=== PATIENT | female | born 1975 | race Two or more races ===

== ENCOUNTER 2022-09-11 17:39 | Emergency (ER) | payer SELFPAY ==
[~2022-09-11] VITALS: Ht 157.5 cm; Wt 72.7 kg
[~2022-09-11 17:39] MED LIST: ASCO125T PO; IBUP-1985 PO; LOVA20TA2 PO; METF500T PO; MULT-1085 PO
[2022-09-11 19:11] VITALS: BP 153/91
[2022-09-11] MEDS ORDERED: ketorolac trometh. 30mg/ml inj. IM ONE (20:05)
== END 2022-09-11 20:38 | disposition home or self-care (01) ==
LOC: ER 17:39
DX: S16.1XXA Strain of muscle, fascia and tendon at neck level, initial encounter (principal); S39.012A Strain of muscle, fascia and tendon of lower back, initial encounter; E11.9 Type 2 diabetes mellitus without complications; F17.200 Nicotine dependence, unspecified, uncomplicated; Z88.5 Allergy status to narcotic agent; Z88.2 Allergy status to sulfonamides; V49.9XXA Car occupant (driver) (passenger) injured in unspecified traffic accident, initial encounter; Y93.89 Activity, other specified; Y92.89 Other specified places as the place of occurrence of the external cause; Y99.8 Other external cause status
CPT/HCPCS: 96372; 99283; J1885

== ENCOUNTER 2023-07-10 10:18 | Emergency (ER) | payer OTHER ==
[~2023-07-10] VITALS: Ht 157.5 cm; Wt 73.6 kg
[2023-07-10 10:22] VITALS: TEMP 99
[2023-07-10] MEDS ORDERED: LORazepam 2 mg/ml vial IM ONE (11:00)
[2023-07-10 11:34] VITALS: BP 147/77; PULSE 69; RESP 16; O2SAT 98
== END 2023-07-10 11:44 | disposition home or self-care (01) ==
LOC: ER 10:19
DX: F41.9 Anxiety disorder, unspecified (principal); R06.02 Shortness of breath; M79.10 Myalgia, unspecified site; F12.90 Cannabis use, unspecified, uncomplicated; E11.9 Type 2 diabetes mellitus without complications; G47.30 Sleep apnea, unspecified; Z88.8 Allergy status to other drugs, medicaments and biological substances; Z88.2 Allergy status to sulfonamides; Z79.899 Other long term (current) drug therapy
CPT/HCPCS: 96372; 99283; J2060

== ENCOUNTER 2023-07-12 09:18 | Emergency (ER) | payer SELFPAY ==
[~2023-07-12] VITALS: Ht 157.5 cm; Wt 67.4 kg
[2023-07-12 11:26] VITALS: PULSE 78; TEMP 97.5; O2SAT 98
[2023-07-12] MEDS ORDERED: LORazepam 1 MG tablet PO ONE (15:55)
[2023-07-12] MEDS ORDERED: ALPR-624 PO (17:30)
[2023-07-12 17:48] VITALS: BP 60/82; RESP 18
== END 2023-07-12 17:55 | disposition home or self-care (01) ==
LOC: ER 09:18
DX: F41.9 Anxiety disorder, unspecified (principal); E11.9 Type 2 diabetes mellitus without complications; F12.90 Cannabis use, unspecified, uncomplicated; Z88.5 Allergy status to narcotic agent; Z88.2 Allergy status to sulfonamides; Z88.8 Allergy status to other drugs, medicaments and biological substances
CPT/HCPCS: 93005; 99283

== ENCOUNTER 2025-09-27 10:42 | Emergency (ER) | payer MEDICAID ==
[~2025-09-27] VITALS: Ht 157.5 cm; Wt 80.1 kg
[~2025-09-27 10:42] MED LIST changes: +ALPR-624 PO; -IBUP-1985 PO; +IBUP600T52 PO
--- NOTE | 2025-09-27 11:04 | ELECTROCARDIOGRAPH REPORT ---
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 MICHAEL Ruiz Measurements Intervals [place] Rate: 80 P: 67 MS: 153 QRS: 68 QRSD: 90 T: 60 QT: 370 QTc: 427 Interpretive Statements Sinus rhythm Electronically Signed On 09-28-2025 19:21:[address] MICHAEL Ruiz Please click the below link to view image of tracing.
--- NOTE | 2025-09-27 11:21 | RADIOLOGY REPORT ---
EXAM: DI CHEST,SINGLE VIEW HISTORY: CP COMPARISON: None TECHNIQUE: Portable upright AP view of the chest was performed. FINDINGS: No pneumothorax, consolidative infiltrates, or pulmonary edema. There is mild central peribronchial thickening. The heart is not enlarged. The aortic arch is calcific. There is thoracic degenerative disc disease. IMPRESSION: Mild reactive airways disease. The lungs are otherwise clear.
[2025-09-27] MEDS ORDERED: METF-1203 PO (11:34)
[2025-09-27] MEDS ORDERED: METO-395 PO (11:34)
[2025-09-27] MEDS ORDERED: CITA10TA22 PO (11:34)
[2025-09-27 11:35] LABS: MEAN PLATELET VOLUME 9.2 FL (7.4-10.4); RED CELL DISTRIBUTION WIDTH 13.3 % (11.5-14.5)
[2025-09-27 12:10] LABS: CREATININE 0.78 MG/DL (0.40-0.90); PRO BRAIN NATRIURETIC PEPTIDE 46 PG/ML (0-125); TOTAL CARBON DIOXIDE 26.4 MMOL/L (24-32); eCRCL 69 ML/MIN; eGFR 78 ML/MIN
[2025-09-27] MEDS: LIDOcaine 1% W/epiNEPHrine 1:100,000 20ml vial IJ ONE (12:54)
[2025-09-27 13:00] LABS: URINE AMPHETAMINE SCREEN NEGATIVE (Neg); URINE BARBITUATE SCREEN NEGATIVE (Neg); URINE BENZODIAZEPINES SCREEN NEGATIVE (Neg); URINE CANNABINOID SCREEN POSITIVE (Neg); URINE COCAINE SCREEN NEGATIVE (Neg); URINE METHADONE SCREEN NEGATIVE (Neg); URINE OPIATE SCREEN NEGATIVE (Neg); URINE PHENCYCLIDINE SCREEN NEGATIVE (Neg)
--- NOTE | 2025-09-27 13:13 | Physician Documentation ---
History of Present Illness ~ Chief Complaint: Syncope Stated Complaint: SYNCOPE Time Seen by MD: 10:49 Primary Medical Doctor: Dr. Tavera at [facility] urgent care Source: patient Mode of Arrival: EMS Exam Limitations: no limitations HPI 50-year-old female who was brought in by EMS due to being found down at work. Patient states that she remembers walking into work at 8:00 a.m. and getting onto her computer but then the next thing she knew she was getting on a stretcher and looking at paramedics. Patient was found on the ground by another employee. Patient reports she bit her tongue and she has a laceration to her head. She does not know what she hit her head on. She is not on blood thin ners. She states she is not confused but she just has no recollection of anything after getting to work and sitting down and getting onto her computer. No prior history of seizures. No urinary incontinence or bowel incontinence. Denies headache, neck pain. Medication Reconciliation Allergies: Coded Allergies: hydrocodone bit (Verified Allergy, Unknown, 09/27/25) sulfamethoxazole (Verified Allergy, Unknown, ITCHING, SWELLING EXTREMITIES, DIARRHEA, & ABD. PAIN, 09/27/25) Scheduled Citalopram Hydrobromide (Citalopram Hbr), 1 TAB PO 1700, (Reported) Metformin HCl (Metformin HCl), 1 TAB PO BID, (Reported) Metoprolol Succinate (Metoprolol Succinate), 1 TAB PO DAILY, (Reported) Miscellaneous Medications Multivitamin (Multi Vitamin Daily), 1 EACH PO, (Reported) Discontinued Medications Alprazolam* (Xanax*), 1 TAB PO TID PRN PRN for for anxiety/agitation Discontinued Reason: patient no longer taking Ascorbic Acid (Vitamin C), 125 MG PO, (Reported) Discontinued Reason: patient no longer taking Ibuprofen (Ibuprofen), 600 MG PO PRN PRN for pain, (Reported) Discontinued Reason: patient no longer taking Lovastatin* (Mevacor*), 1 TABLET PO HS Discontinued Reason: patient no longer taking Metformin Hcl* (Glucophage*), 1 TABLET PO BID, (Reported) Discontinued Reason: patient no longer taking Past Medical History Past Medical History: Sleep Apnea, Diabetes Past Surgical History: other Last Menstrual Period: Sep 25, 2025 Alcohol Use: None Drug Use: marijuana Lives with: Spouse Lives In: Home Review of Systems All Other Systems at this time: Reviewed and Negative Physical Exam Vital Signs: Temperature: 98.2, Source: Oral, Heart Rate: 87, Respiratory Rate: 18, BP: 139/55, Pulse Oximetry: 98, Weight: 80.100 Oxygen Flow Rate: 0 Physical Exam GENERAL: Alert, patient appears tearful. HEENT: Hair is matted down from blood, laceration over the parietal scalp 3CM IN LENGTH. EOMI, PERRLA, LATERAL LEFT SIDE OF TONGUE AREA WHERE TWO PUNCTURE WOUNDS ARE PRESENT, PUNCTURE WOUNDS ARE ARE NOT THROUGH AND THROUGH, NO BLEEDING, Pharyngeal wall normal, moist oral mucosa. NECK: Supple, trachea midline. CARDIAC: Regular rate and rhythm, no murmurs, rubs, or gallops. PV: Equal distal pulses. No lower extremity edema, cap refill less than 2 seconds. RESPIRATORY: Equal breath sounds, clear to auscultation bilaterally, no respiratory distress. GASTROINTESTINAL: Non distended, soft, nontender, No guarding or rebound. MUSCULOSKELETAL: Normal range of motion OF CERVICAL SPINE AND EXTREMITIES, non tender, no swelling. Normal gait. NEUROLOGICAL: Awake, alert, and oriented x 3. CN 2-12 INTACT. SKIN: Warm/dry, no pallor, no rash. PSYCH: Alert and appropriate. Affect congruent with mood. Speech is clear. Good eye contact. Procedures Laceration/Wound Repair Laceration/Wound Repair : Location: SCALP Length (cm): 3 Anesthesia: Lidocaine w/ Epi Volume Anesthetic (mls): 10 Irrigated w/ Saline (mls): 500 Debrided: minimal Undermining: none Margins: revised Foreign Body: not identified Repaired: skin Wound Repaired With: samia Number of Superficial Sutures: 3 Layer Closure?: No Dressing Applied: simple Splint Applied?: No Progress Progress Note EXAM: CT CT HEAD HISTORY: new onset seizure COMPARISON: None TECHNIQUE: Noncontrast axial CT images of the head were performed. Sagittal and coronal reformatted images were obtained. This CT exam was performed using 1 or more of the following dose reduction techniques: Automated exposure control, adjustment of the mA and/or kv according to patient size, or the use of iterative reconstruction techniques. Radiation Dose: CTDI volume is 51.24 mGy. Dose-length product is 889.37 mGy*cm FINDINGS: No intracranial hemorrhage, mass, midline shift, hydrocephalus, or evidence of acute large vessel infarct. The partially-visualized paranasal sinuses are clear. The bilateral mastoid air cells and middle ear spaces are clear. There is right parietal scalp edema and possible laceration, without underlying cranial fracture. IMPRESSION: 1. No acute intracranial process. 2. Right parietal scalp edema and possible laceration, without underlying crania l fracture. Results/Orders Results/Orders Vital Signs 09/27/25 09/27/25 09/27/25 09/27/25 10:46 11:14 11:16 12:54 Temp 98.2 Pulse 84 87 Resp 18 14 14 18 B/P (MAP) 117/68 139/55 (83) Pulse Ox 97 98 O2 Flow Rate 0 0 09/27/25 14:55 Temp 98.2 Pulse 78 Resp 18 B/P (MAP) 132/68 Pulse Ox 99 Laboratory Tests Test 09/27/25 11:22 09/27/25 12:05 09/27/25 13:44 White Blood Count 11.1 H Red Blood Count 4.31 Hemoglobin 14.7 Hematocrit 42.9 Mean Corpuscular Volume 99.6 H Mean Corpuscular Hemoglobin 34.1 H Mean Corpuscular Hemoglobin Concent 34.2 Red Cell Distribution Width 13.3 Platelet Count 229 Mean Platelet Volume 9.2 Neutrophils (%) (Auto) 81.5 H Lymphocytes (%) (Auto) 13.5 L Monocytes (%) (Auto) 4.2 Eosinophils (%) (Auto) 0.2 Basophils (%) (Auto) 0.6 Neutrophils # (Auto) 9.1 H Lymphocytes # (Auto) 1.5 Monocytes # (Auto) 0.5 Eosinophils # (Auto) 0.0 Basophils # (Auto) 0.1 CBC Comment Sodium Level 138 Potassium Level 4.4 Chloride Level 104 Carbon Dioxide Level 26.4 Anion Gap 8 Blood Urea Nitrogen 10 Creatinine 0.78 Estimated GFR/1.73 m2 78 BUN/Creatinine Ratio 12.8 Glucose Level 135 H Calcium Level 8.9 Troponin I High Sensitivity 9 35 Pro-B-Type Natriuretic Peptide 46 Albumin 3.9 Chemistry Comments Urine Opiates Screen Negative Urine Methadone Screen Negative Urine Fentanyl Screen Negative Urine Barbiturates Screen Negative Urine Phencyclidine Screen Negative Urine Amphetamines Screen Negative Urine Benzodiazepines Screen Negative Urine Cocaine Screen Negative Urine Cannabinoids Screen Positive Drug Screen Comment Troponin I High Sens Percent Delta 288 Troponin I Hi Sens Absolute Change 26 Medical Decision Making Additional information obtaine: N/A Findings N/A Differential Dx:Considerations: Include: dehydration, Delirium Tr., DKA, encephalopathy, hypercalcemia, HHNC, hypoglycemia, hypernatremia, hyponatremia, hypoxia, postictal, closed head injury, C-spine injury, CVA, mass lesion, subarachnoid hemorrhage, drug overdose, encephalopathy, ETOH intoxication, medication toxicity, infection - meningitis, infection - sepsis, infection - UTI, heart failure, renal failure, respiratory failure, hyperthermia, hypothermia, other Additional Information THIS DOES NOT SEEM LIKE A SYNCOPAL EPISODE GIVEN THE FACT THAT PATIENT DID NOT APPEAR TO BREAK HER FALL GIVEN THE LACERATIONS TO HER HEAD. ALSO GIVEN THE FACT THAT SHE HAS NO RECOLLECTION OF FEELING LIGHTHEADED AND DIZZINESS OR FEELING LIKE SHE WAS GOING TO PASS OUT. ALSO THE FACT THAT SHE HAS EVIDENCE OF A BITE WOUND ON THE LEFT SIDE OF HER TONGUE. THESE ARE ALL SYMPTOMS AND SIGNS OF A SEIZURE. HEAD CT WAS PERFORMED DUE TO PATIENT NOT HAVING A HISTORY OF A SEIZURE DISORDER. HEAD CT WAS NORMAL. Departure Time of Disposition: 13:15 Disposition: 01 HOME / SELF CARE / HOMELESS Impression: Primary Impression: Loss of consciousness Additional Impressions: Laceration of head Qualified Codes: S01.01XA - Laceration without foreign body of scalp, initial encounter Bite wound of own tongue Condition: Stable Discharge Instructions: Seizure, Adult, [id number] Additional Instructions: YOU NEED TO FOLLOW UP WITH THE PRIMARY CARE PROVIDER FOR AN EEG I SUSPECT THAT WHAT OCCURRED TODAY WAS A SEIZURE GIVEN THE FACT THAT YOU BIT YOUR TONGUE, HAVE NO RECOLLECTION OF FEELING LIGHTHEADED, YOU DID NOT APPEAR TO BREAK YOUR FALL AT ALL GIVEN THE WOUNDS ON YOUR HEAD WHICH ALSO RULES AGAINST A TYPICAL VASOVAGAL SYNCOPAL EPISODE. GIVEN THE LOSS OF CONSCIOUSNESS WE HAVE TO COMPLETE FORM TO [facility] TO REPORT THIS AND RECOMMEND AGAINST DRIVING UNTIL FURTHER EVALUATION Referrals: NO PRIMARY CARE PROVIDER (PCP) Education Educated: Patient Educated regarding: diagnosis, treatment, need for follow up Signature Scribe Signature: X Attestation: BALDEMAR MANJARREZ Sep 27, 2025 13:13 LINDSAY MELARA MD Sep 28, 2025 06:05
[2025-09-27] MEDS: TETanus/Pertussis (Acell)/Diphther VAC/PF (Tdap-Adult) 0.5ml syringe IMVAC ONE (13:47)
--- NOTE | 2025-09-27 14:26 | RADIOLOGY REPORT ---
EXAM: CT CT HEAD HISTORY: new onset seizure COMPARISON: None TECHNIQUE: Noncontrast axial CT images of the head were performed. Sagittal and coronal reformatted images were obtained. This CT exam was performed using 1 or more of the following dose reduction techniques: Automated exposure control, adjustment of the mA and/or kv according to patient size, or the use of iterative reconstruction techniques. Radiation Dose: CTDI volume is 51.24 mGy. Dose-length product is 889.37 mGy*cm FINDINGS: No intracranial hemorrhage, mass, midline shift, hydrocephalus, or evidence of acute large vessel infarct. The partially-visualized paranasal sinuses are clear. The bilateral mastoid air cells and middle ear spaces are clear. There is right parietal scalp edema and possible laceration, without underlying cranial fracture. IMPRESSION: 1. No acute intracranial process. 2. Right parietal scalp edema and possible laceration, without underlying cranial fracture.
[2025-09-27 14:55] VITALS: BP 132/68; PULSE 78; RESP 18; TEMP 98.2; O2SAT 99
== END 2025-09-27 15:00 | disposition home or self-care (01) ==
LOC: ER 10:42
DX: S01.91XA Laceration without foreign body of unspecified part of head, initial encounter (principal); S01.552A Open bite of oral cavity, initial encounter; R55 Syncope and collapse; F12.90 Cannabis use, unspecified, uncomplicated; G47.30 Sleep apnea, unspecified; E11.9 Type 2 diabetes mellitus without complications; Z88.2 Allergy status to sulfonamides; Z88.5 Allergy status to narcotic agent; Z79.899 Other long term (current) drug therapy; Z79.84 Long term (current) use of oral hypoglycemic drugs; W22.09XA Striking against other stationary object, initial encounter; Y93.89 Activity, other specified; Y92.89 Other specified places as the place of occurrence of the external cause; Y99.8 Other external cause status
CPT/HCPCS: 12002; 36415; 70450; 71045; 80048; 80305; 83880; 84484; 85025; 90471; 90715; 93005; 99285; A6449